=== PATIENT | male | born 1950 | race Caucasian/White ===

== ENCOUNTER 2021-09-18 07:34 | Day surgery (SDC) | payer BC, MEDICARE ==
[2021-09-18] MEDS ORDERED: Midazolam 1 MG/ML 2 ML SDV IV ONE (07:35)
[2021-09-18] MEDS ORDERED: Propofol 200 MG/20 ML SDV IV ONE (07:35)
[2021-09-18] MEDS ORDERED: Lactated Ringers 1,000 ML IV SCH (08:15)
[2021-09-18] MEDS ORDERED: Sodium Chloride 0.9% 10 ML Syringe FLUSH PRN (08:15)
== END 2021-09-18 11:49 | disposition home or self-care (01) ==
LOC: FB.SDS 07:34
PROVIDERS: ATTEND Surgery
DX: Z12.11 Encounter for screening for malignant neoplasm of colon (principal); D12.6 Benign neoplasm of colon, unspecified; K57.30 Diverticulosis of large intestine without perforation or abscess without bleeding; E66.9 Obesity, unspecified; E78.5 Hyperlipidemia, unspecified; Z98.890 Other specified postprocedural states; Z91.030 Bee allergy status; Z87.891 Personal history of nicotine dependence; Z68.36 Body mass index [BMI] 36.0-36.9, adult
CPT/HCPCS: 00811-QZ; 88305; J2250; J2704; J7120

== ENCOUNTER 2022-10-02 07:41 | Day surgery (SDC) | payer MEDICARE, BC ==
[2022-10-02] MEDS ORDERED: Propofol 200 MG/20 ML SDV IV ONE (07:42)
[2022-10-02] MEDS ORDERED: Sodium Chloride 0.9% 10 ML Syringe FLUSH PRN (07:45)
[2022-10-02] MEDS ORDERED: Lactated Ringers 1,000 ML IV SCH (07:45)
== END 2022-10-02 10:00 | disposition home or self-care (01) ==
LOC: FB.SDS 07:41
PROVIDERS: ATTEND Surgery
DX: Z12.11 Encounter for screening for malignant neoplasm of colon (principal); K57.30 Diverticulosis of large intestine without perforation or abscess without bleeding; K40.90 Unilateral inguinal hernia, without obstruction or gangrene, not specified as recurrent; M19.90 Unspecified osteoarthritis, unspecified site; Z86.010 Personal history of colon polyps; Z79.899 Other long term (current) drug therapy; Z91.030 Bee allergy status; Z87.891 Personal history of nicotine dependence
CPT/HCPCS: 00812; J2704; J7120

== ENCOUNTER 2023-08-23 06:12 | Day surgery (SDC) | payer MEDICARE, BC ==
[2023-08-23] MEDS ORDERED: Propofol 200 MG/20 ML SDV IV ONE (06:13)
[2023-08-23] MEDS ORDERED: Ketorolac 30 MG/ML SDV IVPUSH ONE (06:13)
[2023-08-23] MEDS ORDERED: fentaNYL 100 MCG/2 ML SDV IV ONE (06:13)
[2023-08-23] MEDS ORDERED: Ondansetron 4 MG/2 ML SDV IVPUSH ONE (06:13)
[2023-08-23] MEDS ORDERED: Midazolam 1 MG/ML 2 ML SDV IV ONE (06:13)
[2023-08-23] MEDS ORDERED: Sodium Chloride 0.9% 10 ML Syringe FLUSH PRN (06:15)
[2023-08-23] MEDS: Lactated Ringers 1,000 ML IV SCH (07:10)
[2023-08-23] MEDS: ceFAZolin 2 GM Vial IVPUSH ONE (07:50)
[2023-08-23] MEDS: Lidocaine 1% with EPINEPHrine 1:100,000 20 ML MDV ONE (08:20)
[2023-08-23] MEDS: Bupivacaine 0.5% 30 ML SDV ONE (08:20)
== END 2023-08-23 10:58 | disposition home or self-care (01) ==
LOC: FB.SDS 06:12
PROVIDERS: ATTEND Surgery
DX: K40.90 Unilateral inguinal hernia, without obstruction or gangrene, not specified as recurrent (principal); E66.01 Morbid (severe) obesity due to excess calories; Z68.38 Body mass index [BMI] 38.0-38.9, adult; Z87.891 Personal history of nicotine dependence; Z79.899 Other long term (current) drug therapy; Z91.030 Bee allergy status
CPT/HCPCS: C1781; J0665; J0690; J1885; J2250; J2405; J2704; J3010; J7120